=== PATIENT | female | born 1965 | race Caucasian/White ===

== ENCOUNTER 2023-01-21 14:19 | Emergency (ER) | payer OTHER, MEDICAID ==
[~2023-01-21] VITALS: Ht 167.6 cm; Wt 85.0 kg
[2023-01-21] MEDS ORDERED: MORPHINE SULFATE 4 MG/ML CPJ (NOT FOR IM USE) IV STA (14:57)
[2023-01-21] MEDS ORDERED: ONDANSETRON HCL 4MG/2ML INJ IV STA (14:57)
[2023-01-21] MEDS ORDERED: SODIUM CHLORIDE 0.9% 1,000 ML IV ONE (15:00)
[2023-01-21 16:23] LABS: BASOPHILS % 0.7 % (0.0-2.0); HEMATOCRIT. 39.2 % (36.0-48.0); HEMOGLOBIN. 13.5 g/dL (12.0-16.0); LYMPHOCYTES % 28.1 % (20.0-50.0); MEAN CORPUSCULAR HEMOGLOBIN 31.9 pg (28.0-32.0); MEAN CORPUSCULAR VOLUME 92.5 fL (81.0-99.0); MEAN PLATELET VOLUME 7.5 fl (7.4-10.4); MONOCYTES % 7.8 % (2.0-8.0); NEUTROPHILS % 61.4 % (40.0-76.0); PLATELET 289 x1000/uL (130-400); RED BLOOD CELL COUNT 4.24 mill/uL (4.2-5.4); RED CELL DISTRIBUTION WIDTH 13.4 % (11.6-14.6)
[2023-01-21 16:25] LABS: CHLORIDE 110 mEq/L (98-107)
[2023-01-21 16:27] LABS: D-DIMER 0.28 mg/L FEU (<0.50); PARTIAL THROMBOPLASTIN TIME 27.5 sec (23.4-31.0); PROTHROMBIN TIME 10.3 sec (9.6-11.0)
[2023-01-21] MEDS ORDERED: IOHEXOL-300 100 ML BOTTLE ONE (18:33)
[2023-01-21] MEDS ORDERED: IBUP-2028 MT (19:00)
[2023-01-21] MEDS ORDERED: KETOROLAC 15MG/ML VIAL IV ONE (19:15)
[2023-01-21 19:31] VITALS: BP 133/78
== END 2023-01-21 19:31 | disposition home or self-care (01) ==
LOC: ER 14:19
DX: M54.2 Cervicalgia (principal); R06.02 Shortness of breath; Z88.0 Allergy status to penicillin; V49.9XXA Car occupant (driver) (passenger) injured in unspecified traffic accident, initial encounter; Y93.89 Activity, other specified; Y92.89 Other specified places as the place of occurrence of the external cause; Y99.8 Other external cause status
CPT/HCPCS: 36415; 70450; 71045; 71275; 72125; 80053; 83880; 84484; 85025; 85379; 85610; 85730; 86850; 86900; 86901; 93005; 96361; 96374; 96375; 99285; J1885; J2270; J2405; Q9967; Z7610